=== PATIENT | female | born 1975 | race Caucasian/White ===

== ENCOUNTER 2016-08-24 15:23 | Emergency (ER) | payer OTHER ==
[~2016-08-24] VITALS: Ht 160 cm; Wt 72.7 kg
[2016-08-24 15:48] VITALS: BP 135/83; PULSE 120; RESP 16; O2SAT 96
--- NOTE | 2016-08-24 18:38 | ED.REPORT ---
HPI-General Illness Date of Service Aug 24, 2016 ED Provider: Eduard Cox MD Pt is a 41 y/o female w/ a hx of polysubstance abuse presenting to the ED for detox. She last used meth, THC, and alcohol 1 hr prior to arrival. She has never been through detox before. She states she gets no withdrawal symptoms and has no history of DTs or seizures. The patient states she has a bed available at [facility] today and is here for medical screening. She denies any other past medical history. There are no other complaints or concerns. Nursing Notes Stated Complaint: DETOX Chief Complaint: Substance Abuse Nursing Notes Reviewed: Yes Allergies: Coded Allergies: No Known Allergies (Unverified , 08/24/16) No Active Prescriptions or Reported Meds General Time Seen by MD: 18:34 Chief Complaint Other (Detox) Hx Obtained From: Patient Arrived By: Walk-in Sudden in Onset?: No Onset Occurred: 1 - 4 hours ago Symptom Duration: Since onset Severity: Current: No pain currently Severity: Maximum: No pain Past Medical History Past Medical History Polysubstance abuse Past Surgical History None reported Smoking History Current Some Day Smoker Social History Alcohol Use: 1-3 per day Drug Use: Meth, THC Ambulatory Status Independent Review of Systems Full Review of Systems Constitutional: Denies: Chills, Fever Respiratory: Denies: Non-productive cough, Shortness of breath Cardiovascular: Denies: Chest pain, Dyspnea on exertion GI: Denies: Abdominal pain, Diarrhea, Nausea, Vomiting Musculoskeletal: Denies: Back pain, Neck pain Neurologic: Denies: Confusion, Headache, Seizure Psychiatric: Denies: Anxiety, Hallucinations, auditory, Hallucinations, visual Complete sys rev & neg: except as marked. Physical Exam Vital Signs Vital Signs Date Time Temp Pulse Resp B/P Pulse Ox O2 Delivery O2 Flow Rate FiO2 08/24/16 19:54 97 143/93 99 Room Air 08/24/16 15:48 36.7 120 16 135/83 96 Room Air Initial VS: Reviewed, Vital signs abnormal Head / Eyes: Atraumatic, Normocephalic, PERRL ENT: Mucous membranes moist, Conjunctiva normal, No scleral icterus Neck: Supple, Full range of motion Respiratory: Breath sounds normal, Clear to auscultation, No respiratory distress Cardiovascular: Regular rate & rhythm, Heart sounds normal, Intact distal pulses Abdomen / GI: Soft, Non-tender, No guarding, No rebound, No distention Extremities: Vascular intact, Neuro intact, No swelling, No tenderness Skin: Warm, Dry, No cyanosis Neurologic: Alert, Oriented, Nonfocal Psychiatric: Mood/affect normal, Behavior normal, Normal thought content General/Constitutional: Awake, Alert, No acute distress, Cooperative, Not toxic appearing Behavior: Negative: Appears intoxicated Appearance / Presentation: Negative: Intoxicated Interpretation & Diagnostics Lab Results Interpretation Test 08/24/16 16:42 Hold Urine Received (Received) Re-Eval/Medical Decision Med Decision/Clinical Course 41-year-old female presenting as clearance for [facility]. She used marijuana, MDMA, methamphetamines. Last used earlier today. Blood alcohol level is 0.03. Vital signs stable. Patient is medically cleared for [facility]. She was transferred via taxi. Consultation : Consulted With: social worker delinquency prevention Call Returned at: 18:49 Tucking Machine Operator: Will see patient, Agrees with eval, Agrees with plan Note: Will organized xfer to Crisis. Counseled Regarding: Diagnosis, Need for follow-up, When/why to return to ED Discharge & Departure Primary Impression: Polysubstance abuse Additional Impression: Admitted to substance misuse detoxification center Disposition: Home Discharge Condition All VS Reviewed: Yes Condition: Stable Patient Instructions: Abuse of Alcohol (ED) Additional Instructions: Go straight to [facility]. Take the Ativan taper as prescribed. Do not miss any doses. Return to the emergency department if you experience withdrawal symptoms that Crisis cannot seem to keep controlled such as severe tremors, hallucinations. Referrals: [facility] (PCP) Scribe Attestation Portions of this note were transcribed by Erick King. I, Dr. Cox personally performed the history, physical exam and medical decision-making; I reviewed and confirmed the accuracy of the information in the transcribed note. Signed by Jayce Saenz, 08/24/16 - 1900 Eduard Cox MD Aug 24, 2016 18:38 ERICK KING Aug 24, 2016 18:40
[2016-08-24 19:54] VITALS: BP 143/93; PULSE 97; O2SAT 99
[2016-08-24] MEDS ORDERED: _LORazepam 2 MG Tablet PO SCH (19:55)
== END 2016-08-24 21:15 | disposition home or self-care (01) ==
LOC: SED 15:23
DX: F19.20 Other psychoactive substance dependence, uncomplicated (principal); Z02.2 Encounter for examination for admission to residential institution; F17.200 Nicotine dependence, unspecified, uncomplicated